=== PATIENT | female | born 1950 | race African-American/Black ===

== ENCOUNTER 2017-09-04 13:48 | Inpatient (IN) ==
[2017-09-04] MEDS ORDERED: ONDANSETRON 4 MG/2 ML VIAL IV PRN (16:45)
[2017-09-04] MEDS ORDERED: ACETAMINOPHEN 325 MG TABLET PO PRN (16:45)
[2017-09-04] MEDS ORDERED: DOCUSATE SODIUM 100 MG CAPSULE PO PRN (16:45)
[2017-09-04] MEDS ORDERED: SODIUM CHLORIDE 0.9% 1,000 ML IV SCH (17:00)
[2017-09-04 17:10] LABS: Basophils % 0.1 % (0.0-0.8); Eosinophils # 0.2 10*3/uL (0.0-0.87); Eosinophils % 2.1 % (0.00-10.9); Hematocrit 27.1 VOL% (35.7-47.0); Immature Granulocytes % 1.9 %; Immature Granulocytes Absolute 0.13 #; Lymphocytes # 0.4 10*3/uL (1.4-4.0); Mean Corpuscular HGB Conc 33.2 GM/DL (32-36); Mean Corpuscular Hemoglobin 29 PG (27-34); Mean Corpuscular Volume 86.6 FL (87-102); Monocytes # 0.3 10*3/uL (0.11-0.8); Monocytes % 3.7 % (1.7-12.7); Neutrophils # 6.1 10*3/uL (1.4-7.4); Neutrophils % 87.2 % (38.7-73.9); Platelet Count 101 T/CUMM (130-400); Red Blood Count 3.13 MC/CUMM (3.8-5.5); Red Cell Distribution Width 15.3 % (9.3-17.3)
[2017-09-04 17:50] LABS: Alanine Aminotransferase 13 U/L (13-56); Albumin 0.9 G/DL (3.4-5.0); Alkaline Phosphatase 48 U/L (45-117); Aspartate Amino Transferase 25 U/L (0-37); Bilirubin,Total < 0.39 MG/DL (0.2-1.0); Glucose 95 MG/DL (74-106); Potassium 4.8 MMOL/L (3.5-5.1); Sodium 150 MMOL/L (136-145)
[2017-09-04] MEDS: PANTOPRAZOLE 40 MG TABLET PO SCH (18:05)
[2017-09-04 18:19] LABS: Blood Urea Nitrogen 197 MG/DL (7-18)
[2017-09-04] MEDS: SODIUM BICARB INJ 50 MEQ in DEXTROSE 5% NACL 0.22% 1,000 ML IV SCH (19:57)
[2017-09-05] MEDS: ZINC OXIDE PASTE 113 GM TUBE TOP SCH ×3 (05:46→20:13)
[2017-09-05] MEDS: SODIUM BICARB INJ 50 MEQ in DEXTROSE 5% NACL 0.22% 1,000 ML IV SCH ×3 (05:50→20:13)
[2017-09-05 06:47] LABS: Basophils % 0.2 % (0.0-0.8); Eosinophils # 0.2 10*3/uL (0.0-0.87); Eosinophils % 3.5 % (0.00-10.9); Hematocrit 24.5 VOL% (35.7-47.0); Hemoglobin 8.3 GM/DL (12.0-16.0); Immature Granulocytes % 1.8 %; Immature Granulocytes Absolute 0.11 #; Lymphocytes # 0.4 10*3/uL (1.4-4.0); Lymphocytes % 6.1 % (21.3-54.2); Mean Corpuscular HGB Conc 33.9 GM/DL (32-36); Mean Corpuscular Hemoglobin 29 PG (27-34); Mean Corpuscular Volume 84.2 FL (87-102); Mean Platelet Volume 11.8 FL (9.6-12.0); Monocytes # 0.2 10*3/uL (0.11-0.8); Monocytes % 3.7 % (1.7-12.7); Neutrophils % 84.7 % (38.7-73.9); Platelet Count 79 T/CUMM (130-400); Red Blood Count 2.91 MC/CUMM (3.8-5.5); Red Cell Distribution Width 15.2 % (9.3-17.3)
[2017-09-05 07:14] LABS: Calcium 6.9 MG/DL (8.5-10.1); Osmolality,Calculated 362.1 MOS/KG (273-304); Potassium 4.6 MMOL/L (3.5-5.1); Risk Ratio 2.71; VLDL CHOLESTEROL 31.8 MG/DL
[2017-09-05] MEDS: PANTOPRAZOLE 40 MG TABLET PO SCH (09:32)
[2017-09-05 11:32] LABS: Total Protein 5.4 G/DL (6.4-8.3)
[2017-09-05 12:25] LABS: Apearance,Urine Slightly Hazy (Clear); Bacteria,Urine Many /HPF (Few); Bilirubin,Urine Negative (Negative); Blood, Urine Small mg/dL (Negative); Glucose,Urine (UA) 150 mg/dL (Negative); Ketones,Urine Negative (Negative); Nitrite,Urine Negative (Negative); Protein,Urine >=500 MG/DL; RBC,Urine 6 /HPF (0-4); Squamous Epithelial Cell,Urine Occasional /HPF (0-10); Urine Color Yellow (Yellow); Urine Specific Gravity 1.018 (1.001-1.035); Urine Urobilinogen < 2.0 EU/DL (0.2-1.0); WBC,Urine 5 /HPF (0-6)
[2017-09-05 20:12] LABS: INR 1.1; PT Patient Result 11.8 SECS; Partial Thromboplastin Time 37.9 SECS (0-40)
[2017-09-05 21:21] LABS: Hepatitis A Ab IgM Quant 0.04 Index; Hepatitis A Ab IgM Result Negative (Negative); Hepatitis B Core IgM Quant 0.16 Index; Hepatitis B Core IgM Result Negative (Negative); Hepatitis B Surface Ag Quant < 0.10 Index; Hepatitis B Surface Ag Result Negative (Negative); Hepatitis C Virus Ab Quant 0.12 Index; Hepatitis C Virus Ab Result Negative (Negative)
[2017-09-06 05:26] LABS: Basophils % 0.2 % (0.0-0.8); Eosinophils # 0.2 10*3/uL (0.0-0.87); Eosinophils % 2.9 % (0.00-10.9); Hematocrit 25.7 VOL% (35.7-47.0); Hemoglobin 8.7 GM/DL (12.0-16.0); Immature Granulocytes % 2.1 %; Immature Granulocytes Absolute 0.13 #; Lymphocytes # 0.4 10*3/uL (1.4-4.0); Lymphocytes % 5.6 % (21.3-54.2); Mean Corpuscular HGB Conc 33.9 GM/DL (32-36); Mean Corpuscular Hemoglobin 28 PG (27-34); Mean Corpuscular Volume 83.7 FL (87-102); Mean Platelet Volume 12.2 FL (9.6-12.0); Monocytes # 0.3 10*3/uL (0.11-0.8); Monocytes % 4.6 % (1.7-12.7); Neutrophils # 5.3 10*3/uL (1.4-7.4); Neutrophils % 84.6 % (38.7-73.9); Platelet Count 81 T/CUMM (130-400); Red Blood Count 3.07 MC/CUMM (3.8-5.5); Red Cell Distribution Width 15.1 % (9.3-17.3); White Blood Count 6.2 T/CUMM (4-12)
[2017-09-06 05:50] LABS: Calcium 6.2 MG/DL (8.5-10.1); Osmolality,Calculated 354.4 MOS/KG (273-304); Potassium 4.2 MMOL/L (3.5-5.1)
[2017-09-06 06:09] LABS: Band Neutrophils 2 % (0-10); Eosinophils 2 % (0-10); Lymphocytes 6 % (20-55); Myelocytes 2 %; Segmented Neutrophils 88 % (50-85); Total Cells Counted 100
[2017-09-06 06:10] LABS: Anisocytosis 1+; Hypochromasia 1+; Ovalocytes 1+; Platelet Estimate Decreased
[2017-09-06] MEDS ORDERED: HEPARIN 5,000 UNIT/1 ML VIAL ONE (10:04)
[2017-09-06] MEDS ORDERED: LIDOCAINE 1%/EPI INJ 20 ML VIAL ONE (10:04)
[2017-09-06] MEDS ORDERED: TISSUE ADHESIVE 1 EACH APPLICATOR TOP ONE (10:05)
[2017-09-06] MEDS ORDERED: BUPIVACAINE 0.25% 50 ML VIAL ONE (10:05)
[2017-09-06] MEDS: PANTOPRAZOLE 40 MG TABLET PO SCH (10:07)
[2017-09-06] MEDS: ZINC OXIDE PASTE 113 GM TUBE TOP SCH ×2 (10:07→20:38)
[2017-09-06] MEDS ORDERED: FAMOTIDINE 20 MG TABLET PO ONE (10:11)
[2017-09-06] MEDS ORDERED: CLINDAMYCIN INJ 900 MG in PREMIX 1 EACH IV ONE (10:30)
[2017-09-06] MEDS ORDERED: ETOMIDATE 20 MG/10 ML VIAL IV ONE (11:33)
[2017-09-06] MEDS ORDERED: SODIUM CHLORIDE 0.9% 250 ML IV ONE (11:33)
[2017-09-06] MEDS ORDERED: fentaNYL 100 MCG/2 ML VIAL ONE (11:33)
[2017-09-06] MEDS ORDERED: hydrALAZINE 20 MG/1 ML VIAL ONE (11:37)
[2017-09-06] MEDS ORDERED: hydrALAZINE 20 MG/1 ML VIAL IV ONE (11:40)
[2017-09-06 13:15] LABS: Collection Time,Urine 24 HOURS; Total Volume,Urine 350 ML (400-2000)
[2017-09-06 13:50] LABS: Total Protein 24 Hr Ur Result 5414 MG/24HR (0-149.1)
[2017-09-06 14:29] LABS: Basophils % 0.5 % (0.0-0.8); Eosinophils # 0.1 10*3/uL (0.0-0.87); Eosinophils % 2.1 % (0.00-10.9); Hematocrit 26.3 VOL% (35.7-47.0); Hemoglobin 9.1 GM/DL (12.0-16.0); Immature Granulocytes % 1.6 %; Immature Granulocytes Absolute 0.07 #; Lymphocytes # 0.3 10*3/uL (1.4-4.0); Lymphocytes % 7.5 % (21.3-54.2); Mean Corpuscular HGB Conc 34.6 GM/DL (32-36); Mean Corpuscular Hemoglobin 29 PG (27-34); Mean Corpuscular Volume 83.5 FL (87-102); Mean Platelet Volume 11.8 FL (9.6-12.0); Monocytes # 0.1 10*3/uL (0.11-0.8); Monocytes % 2.8 % (1.7-12.7); Neutrophils # 3.7 10*3/uL (1.4-7.4); Neutrophils % 85.5 % (38.7-73.9); Platelet Count 85 T/CUMM (130-400); Red Blood Count 3.15 MC/CUMM (3.8-5.5); Red Cell Distribution Width 15.2 % (9.3-17.3); White Blood Count 4.3 T/CUMM (4-12)
[2017-09-06 15:29] LABS: Sedimentation Rate-Westergren 126 MM/HR (0-30)
[2017-09-06] MEDS: SODIUM BICARB INJ 50 MEQ in DEXTROSE 5% NACL 0.22% 1,000 ML IV SCH (20:40)
[2017-09-07] MEDS: SODIUM BICARB INJ 50 MEQ in DEXTROSE 5% NACL 0.22% 1,000 ML IV SCH ×2 (00:12→13:02)
[2017-09-07 06:47] LABS: Calcium 6.2 MG/DL (8.5-10.1); Osmolality,Calculated 323.6 MOS/KG (273-304); Potassium 4.2 MMOL/L (3.5-5.1)
[2017-09-07 08:01] LABS: Basophils % 0.2 % (0.0-0.8); Eosinophils # 0.1 10*3/uL (0.0-0.87); Eosinophils % 2.3 % (0.00-10.9); Hematocrit 24.1 VOL% (35.7-47.0); Hemoglobin 8.3 GM/DL (12.0-16.0); Immature Granulocytes % 1.4 %; Immature Granulocytes Absolute 0.08 #; Lymphocytes # 0.3 10*3/uL (1.4-4.0); Lymphocytes % 6.1 % (21.3-54.2); Mean Corpuscular HGB Conc 34.4 GM/DL (32-36); Mean Corpuscular Hemoglobin 29 PG (27-34); Mean Corpuscular Volume 82.8 FL (87-102); Mean Platelet Volume 12.1 FL (9.6-12.0); Monocytes # 0.2 10*3/uL (0.11-0.8); Monocytes % 4.3 % (1.7-12.7); Neutrophils # 4.8 10*3/uL (1.4-7.4); Neutrophils % 85.7 % (38.7-73.9); Red Blood Count 2.91 MC/CUMM (3.8-5.5); White Blood Count 5.6 T/CUMM (4-12)
[2017-09-07 08:11] LABS: Platelet Count 60 T/CUMM (130-400)
[2017-09-07 08:29] LABS: Eosinophils 1 % (0-10); Hypochromasia 1+; Lymphocytes 8 % (20-55); Microcytosis Slight; Segmented Neutrophils 85 % (50-85); Total Cells Counted 100
[2017-09-07 08:30] LABS: Ovalocytes Slight; Platelet Estimate Decreased
[2017-09-07] MEDS: ZINC OXIDE PASTE 113 GM TUBE TOP SCH ×2 (09:07→20:13)
[2017-09-07] MEDS: PANTOPRAZOLE 40 MG TABLET PO SCH (09:07)
[2017-09-07] MEDS: LACTULOSE 20 GM/30 ML UDCUP PO PRN (17:00)
[2017-09-08] MEDS: LACTULOSE 20 GM/30 ML UDCUP PO PRN (04:03)
[2017-09-08 06:47] LABS: Folate 2.9 NG/ML (5.4-24.0); Vitamin B12 808 PG/ML (211-911)
[2017-09-08 07:34] LABS: Hemoglobin A1 (Alkaline) 97.5 % (96.5-98.5)
[2017-09-08 07:35] LABS: Hemoglobin A2 (Alkaline) 2.5 % (1.5-3.5)
[2017-09-08 07:47] LABS: Albumin (SPE) 0.9 G/DL (3.2-5.3); Albumin (SPE) Rel % 17.2 %; Alpha 1 (SPE) 0.3 G/DL (0.1-0.4); Alpha 1 (SPE) Rel % 5.2 %; Alpha 2 (SPE) Rel % 18.2 %; Beta (SPE) 0.9 G/DL (0.5-1.1); Beta (SPE) Rel % 16.2 %; Gamma (SPE) 2.3 G/DL (0.7-1.7); Gamma (SPE) Rel % 43.2 %; Total Protein (Chem) 5.4 G/DL (6.4-8.3)
[2017-09-08 07:49] LABS: 24 Hr Protein (Bench) 5414 MG/24HR (0-149.1); Albumin (UPE) Rel % 37.2 %; Alpha 1 (UPE) 530.6 MG/24H; Alpha 1 (UPE) Rel % 9.8 %; Alpha 2 (UPE) 698.4 MG/24H; Alpha 2 (UPE) Rel % 12.9 %; Beta (UPE) 600.9 MG/24H
[2017-09-08 07:50] LABS: Beta (UPE) Rel % 11.1 %; Gamma (UPE) 1570.1 MG/24H
[2017-09-08] MEDS: ZINC OXIDE PASTE 113 GM TUBE TOP SCH ×2 (08:38→23:03)
[2017-09-08] MEDS: PANTOPRAZOLE 40 MG TABLET PO SCH (08:38)
[2017-09-09 06:45] LABS: Basophils % 0.2 % (0.0-0.8); Eosinophils # 0.2 10*3/uL (0.0-0.87); Eosinophils % 3.1 % (0.00-10.9); Hematocrit 22.7 VOL% (35.7-47.0); Hemoglobin 7.7 GM/DL (12.0-16.0); Immature Granulocytes % 0.8 %; Immature Granulocytes Absolute 0.05 #; Lymphocytes # 0.3 10*3/uL (1.4-4.0); Lymphocytes % 4.3 % (21.3-54.2); Mean Corpuscular HGB Conc 33.9 GM/DL (32-36); Mean Corpuscular Hemoglobin 29 PG (27-34); Mean Corpuscular Volume 84.7 FL (87-102); Mean Platelet Volume 12.5 FL (9.6-12.0); Monocytes # 0.2 10*3/uL (0.11-0.8); Monocytes % 3.8 % (1.7-12.7); Neutrophils # 5.3 10*3/uL (1.4-7.4); Neutrophils % 87.8 % (38.7-73.9); Platelet Count 55 T/CUMM (130-400); Red Blood Count 2.68 MC/CUMM (3.8-5.5); White Blood Count 6.1 T/CUMM (4-12)
[2017-09-09 07:11] LABS: Immuno Free Light Chain Kappa 99.64 MG/DL (0.33-1.94); Immuno Free Light Chain Lambda 55.74 MG/DL (0.57-2.63); Immuno Free Light Chain Ratio 1.79 MG/DL (0.26-1.65)
[2017-09-09] MEDS ORDERED: SODIUM CHLORIDE 0.9% 1,000 ML IV PRN (07:38)
[2017-09-09 07:50] LABS: Polychromasia Slight
[2017-09-09 07:51] LABS: Microcytosis Slight; Platelet Estimate Decreased
[2017-09-09] MEDS: PANTOPRAZOLE 40 MG TABLET PO SCH (13:42)
[2017-09-09] MEDS: ZINC OXIDE PASTE 113 GM TUBE TOP SCH ×2 (13:42→21:59)
[2017-09-10 07:06] LABS: Basophils % 0.2 % (0.0-0.8); Eosinophils # 0.2 10*3/uL (0.0-0.87); Hematocrit 31.7 VOL% (35.7-47.0); Immature Granulocytes % 0.9 %; Immature Granulocytes Absolute 0.05 #; Lymphocytes # 0.3 10*3/uL (1.4-4.0); Lymphocytes % 5.7 % (21.3-54.2); Mean Corpuscular Hemoglobin 29 PG (27-34); Mean Platelet Volume 13.2 FL (9.6-12.0); Monocytes # 0.3 10*3/uL (0.11-0.8); Monocytes % 5.8 % (1.7-12.7); Neutrophils # 4.4 10*3/uL (1.4-7.4); Neutrophils % 83.4 % (38.7-73.9); Platelet Count 43 T/CUMM (130-400); Red Blood Count 3.82 MC/CUMM (3.8-5.5); Red Cell Distribution Width 15.1 % (9.3-17.3); White Blood Count 5.3 T/CUMM (4-12)
[2017-09-10 07:09] LABS: Hemoglobin 11.1 GM/DL (12.0-16.0)
[2017-09-10 07:27] LABS: Hypochromasia 1+
[2017-09-10 07:36] LABS: Albumin 0.9 G/DL (3.4-5.0); Bilirubin,Total 0.7 MG/DL (0.2-1.0); Magnesium 1.8 MG/DL (1.8-2.4); Osmolality,Calculated 277.7 MOS/KG (273-304); Phosphorous 3.7 MG/DL (2.5-4.9); Potassium 3.9 MMOL/L (3.5-5.1); Total Protein 5.8 G/DL (6.4-8.3)
[2017-09-10] MEDS: PANTOPRAZOLE 40 MG TABLET PO SCH (10:00)
[2017-09-10] MEDS: ZINC OXIDE PASTE 113 GM TUBE TOP SCH ×2 (10:00→20:22)
[2017-09-10] MEDS ORDERED: TUBERCULIN SKIN TEST 0.1 ML SYRINGE INTRADERM ONE (11:18)
[2017-09-11 06:56] LABS: Basophils % 0.2 % (0.0-0.8); Eosinophils # 0.2 10*3/uL (0.0-0.87); Eosinophils % 5.1 % (0.00-10.9); Hematocrit 31.7 VOL% (35.7-47.0); Hemoglobin 10.7 GM/DL (12.0-16.0); Immature Granulocytes % 0.6 %; Immature Granulocytes Absolute 0.03 #; Lymphocytes # 0.4 10*3/uL (1.4-4.0); Lymphocytes % 8.3 % (21.3-54.2); Mean Corpuscular HGB Conc 33.8 GM/DL (32-36); Mean Corpuscular Hemoglobin 29 PG (27-34); Mean Corpuscular Volume 85.2 FL (87-102); Mean Platelet Volume 13.1 FL (9.6-12.0); Monocytes # 0.2 10*3/uL (0.11-0.8); Monocytes % 4.9 % (1.7-12.7); Neutrophils # 3.8 10*3/uL (1.4-7.4); Neutrophils % 80.9 % (38.7-73.9); Red Blood Count 3.72 MC/CUMM (3.8-5.5); Red Cell Distribution Width 15.1 % (9.3-17.3); White Blood Count 4.7 T/CUMM (4-12)
[2017-09-11 06:59] LABS: Platelet Count 41 T/CUMM (130-400)
[2017-09-11 07:25] LABS: Hypochromasia 1+; Microcytosis Slight; Ovalocytes Slight; Platelet Estimate Decreased
[2017-09-11 07:32] LABS: Magnesium 1.9 MG/DL (1.8-2.4); Osmolality,Calculated 280.5 MOS/KG (273-304); Potassium 3.9 MMOL/L (3.5-5.1)
[2017-09-11] MEDS: ZINC OXIDE PASTE 113 GM TUBE TOP SCH ×2 (16:52→20:30)
[2017-09-12 07:11] LABS: Magnesium 1.8 MG/DL (1.8-2.4); Osmolality,Calculated 278.4 MOS/KG (273-304); Potassium 3.7 MMOL/L (3.5-5.1)
[2017-09-12] MEDS: ZINC OXIDE PASTE 113 GM TUBE TOP SCH ×2 (09:41→22:00)
[2017-09-13] MEDS: ESCITALOPRAM 10 MG TABLET PO SCH (21:16)
[2017-09-13] MEDS: ZINC OXIDE PASTE 113 GM TUBE TOP SCH (21:17)
[2017-09-14 06:15] LABS: Calcium 7.2 MG/DL (8.5-10.1); Osmolality,Calculated 275.5 MOS/KG (273-304); Potassium 3.9 MMOL/L (3.5-5.1)
[2017-09-14] MEDS: ZINC OXIDE PASTE 113 GM TUBE TOP SCH ×2 (10:48→21:21)
[2017-09-14] MEDS: ESCITALOPRAM 10 MG TABLET PO SCH (21:20)
[2017-09-15 06:13] LABS: Osmolality,Calculated 279.5 MOS/KG (273-304); Potassium 3.8 MMOL/L (3.5-5.1)
[2017-09-15] MEDS: ZINC OXIDE PASTE 113 GM TUBE TOP SCH (10:38)
[2017-09-15 11:26] VITALS: BP 127/63
== END 2017-09-15 13:29 | DRG 674 ==
LOC: N.5E 16:14 → SUATTDRO 16:14
PROVIDERS: ADMIT Internal Medicine; ATTEND Internal Medicine